=== PATIENT | female | born 1965 | race Two or more races ===

== ENCOUNTER 2024-03-05 16:18 | Outpatient (REF) | payer OTHER, SELFPAY ==
[2024-03-05 17:59] LABS: Anion Gap 10 (12-20); Blood Urea Nitrogen 19 mg/dL (9-16); Calcium 9.8 mg/dL (8.4-10.2); Carbon Dioxide 31 mmol/L (22-29); Chloride 105 mmol/L (96-108); Estimated Glomerular Filt Rate 56; Glucose Random 100 mg/dL (60-115); Sodium 142 mmol/L (135-145)
[2024-03-05 18:17] LABS: TSH reflex Free T4 2.63 uIU/mL (0.32-4.0)
[2024-03-05 18:24] LABS: Folate 13.4 ng/mL (> or = 4.0); Vitamin B12 976 pg/mL (200-900)
[2024-03-07 18:28] LABS: Homocysteine 9.5 umol/L (<10.4)
[2024-03-08 18:27] LABS: Methylmalonic Acid 219 nmol/L (69-390)
== END 2024-03-05 16:19 | disposition home or self-care (01) ==
LOC: HO.LAB 16:18
PROVIDERS: Visit Provider Psychiatry & Neurology Neurology
DX: R41.3 Other amnesia (principal)
CPT/HCPCS: 36415; 80048; 82607; 82746; 83090; 83921; 84443